=== PATIENT | male | born 1950 | race Caucasian/White ===

== ENCOUNTER 2020-05-18 11:19 | Day surgery (SDC) | payer MEDICARE, OTHER ==
[~2020-05-18] VITALS: Ht 182.9 cm; Wt 92.2 kg
[~2020-05-18 11:19] MED LIST: ALPR1 PO; CYCL10 PO; Colace100 MG PO; EPIPEN 2-P0.3 MG/0.1 IM; Hair, Skin & N1 EACH PO; Percocet 5-3251 EACH PO; TRAM50 PO; Zofran Odt4 MG SL
[2020-05-18] MEDS ORDERED: MELO7.5 PO (11:37)
== END 2020-05-18 12:40 | disposition home or self-care (01) ==
LOC: ORSCSDS 11:19
PROVIDERS: Internal Medicine Gastroenterology
PROC: 0D758ZZ Dilation of Esophagus, Via Natural or Artificial Opening Endoscopic (ICD-10-PCS; principal; 2020-05-18 12:30)
PROC: 0DB58ZX Excision of Esophagus, Via Natural or Artificial Opening Endoscopic, Diagnostic (ICD-10-PCS; principal; 2020-05-18 12:30)
DX: R13.10 Dysphagia, unspecified (principal); K44.9 Diaphragmatic hernia without obstruction or gangrene; Z87.891 Personal history of nicotine dependence; Z79.899 Other long term (current) drug therapy
CPT/HCPCS: 88305; J2704; J7120

== ENCOUNTER 2022-04-04 09:07 | Day surgery (SDC) | payer MEDICARE, OTHER ==
[~2022-04-04] VITALS: Ht 182.9 cm; Wt 84.0 kg
[~2022-04-04 09:07] MED LIST changes: +MELO7.5 PO
--- NOTE | 2022-04-04 10:26 | NUR ---
04/04/22 1026 JOHNNIE TONG received report from LEI morrison. THIS RN WILL ASSIST DR. HERNANDEZ WITH PRE OP BLOCK. MET PATIENT. NO QUESTIONS/CONCERNS AT THIS TIME. CALL LIGHT WITHIN REACH.
== END 2022-04-04 11:42 | disposition home or self-care (01) ==
LOC: ORSCSDS 09:07
PROVIDERS: Orthopaedic Surgery
PROC: 01N54ZZ Release Median Nerve, Percutaneous Endoscopic Approach (ICD-10-PCS; principal; 2022-04-04 10:30)
DX: G56.02 Carpal tunnel syndrome, left upper limb (principal); E78.00 Pure hypercholesterolemia, unspecified; Z87.891 Personal history of nicotine dependence; Z79.899 Other long term (current) drug therapy
CPT/HCPCS: J2250; J3010; J7120

== ENCOUNTER → 2023-02-27 | Outpatient (CLI) | payer MEDICARE, OTHER | LOC: LAB 15:09 → LAB SHORT 15:09 | DX: Z51.81 Encounter for therapeutic drug level monitoring (principal); Z79.899 Other long term (current) drug therapy | CPT/HCPCS: G0480 ==